=== PATIENT | female | born 1955 | race Caucasian/White ===

== ENCOUNTER 2022-04-14 08:35 | Emergency (ER) | payer MEDICARE, BC ==
[~2022-04-14] VITALS: Ht 165.1 cm; Wt 80.0 kg
[2022-04-14 08:41] VITALS: BP 131/101
[2022-04-14] MEDS ORDERED: ALBU6.7H9 INH (11:42)
[2022-04-14] MEDS ORDERED: BENZ-38 PO (11:42)
[2022-04-14] MEDS ORDERED: TAM75C PO (11:42)
== END 2022-04-14 12:22 | disposition home or self-care (01) ==
LOC: ER 08:36
DX: B34.9 Viral infection, unspecified (principal); Z20.822 Contact with and (suspected) exposure to COVID-19; I48.91 Unspecified atrial fibrillation; I10 Essential (primary) hypertension; J45.909 Unspecified asthma, uncomplicated; Z72.89 Other problems related to lifestyle; Z88.8 Allergy status to other drugs, medicaments and biological substances; Z79.899 Other long term (current) drug therapy; Z88.2 Allergy status to sulfonamides; Z91.040 Latex allergy status
CPT/HCPCS: 36415; 71045; 87502; 87503; 87635; 99284; C9803